=== PATIENT | female | born 1985 | race Caucasian/White ===

== ENCOUNTER 2021-11-22 14:23 | Emergency (ER) | payer MEDICAID ==
[~2021-11-22] VITALS: Ht 160 cm; Wt 87.5 kg
[~2021-11-22 14:23] MED LIST: ALBU-118 IH
[2021-11-22 14:33] VITALS: BP 136/82
--- NOTE | 2021-11-22 14:43 | NUR ---
Dr. Newton at bedside evaluating patient.
[2021-11-22] MEDS ORDERED: methylPREDNISolone SS 125 MG/2 ML VIAL IVP ONE (14:50)
[2021-11-22] MEDS ORDERED: ALBUTEROL SULFATE/IPRATROPIU 3 ML SOL IH ONE ×3 (14:50→16:55)
[2021-11-22] MEDS ORDERED: MAG SULF 2000 MG/WATER PREMIX 50 ML IV ONE (14:50)
--- NOTE | 2021-11-22 14:56 | NUR ---
XRAY AT BEDSIDE
--- NOTE | 2021-11-22 14:58 | NUR ---
Radiology at bedside.
--- NOTE | 2021-11-22 15:23 | NUR ---
35 y/o female bib self due to SOB from asthma x 2 days ago. Patient is at 100% a triage and at bedside. Patient also experiencing light headedness and chest/back pain. Medical History: ASTHMA ALLERGIES: DEXAMETHASONE
[2021-11-22 18:01] LABS: BASOPHILS % (AUTO) 0.4 % (0.0-2.0); EOSINOPHILS # (AUTO) 0.1 K/uL (0-0.4); EOSINOPHILS % (AUTO) 1.1 % (0.0-4.0); HEMATOCRIT 33.1 % (36-48); HEMOGLOBIN 10.4 g/dL (12.0-16.0); LYMPHOCYTES # (AUTO) 0.6 K/uL (2.5-16.5); LYMPHOCYTES % (AUTO) 8.2 % (20.5-51.1); MEAN CORPUSCULAR HEMOGLOBIN 22 pg (27-31); MEAN CORPUSCULAR HGB CONC 31 g/dL (33-37); MEAN CORPUSCULAR VOLUME 70.6 fL (80-94); MONOCYTES # (AUTO) 0.1 K/uL (0.8-1.0); MONOCYTES % (AUTO) 1.1 % (1.7-9.3); NEUTROPHILS # (AUTO) 6.1 K/uL (1.8-7.7); NEUTROPHILS % (AUTO) 89.2 % (42.2-75.2); PLATELET COUNT (AUTO) 334 K/uL (140-450); RED BLOOD CELL COUNT(AUTO) 4.69 MIL/uL (4.20-5.40); RED CELL DISTRIBUTION WIDTH 15.7 % (11.6-13.7); WHITE BLOOD COUNT (AUTO) 6.8 K/uL (4.8-10.8)
[2021-11-22 18:20] LABS: ALBUMIN 3.1 g/dL (3.4-5.0); ANION GAP 3.7 (8-16); CARBON DIOXIDE 27.1 mmol/L (21-32); CREATININE 0.9 mg/dL (0.6-1.3); POTASSIUM 3.8 mmol/L (3.5-5.1); TOTAL BILIRUBIN 0.1 mg/dL (0.0-1.0)
[2021-11-22] MEDS ORDERED: NACL 0.9% 1,000 ML IV ONE (18:30)
--- NOTE | 2021-11-22 19:11 | NUR ---
Report given to KEV Gomez for transfer of care.
--- NOTE | 2021-11-22 20:44 | NUR ---
PT SITTING AT BEDSIDE EATING .
--- NOTE | 2021-11-22 21:19 | NUR ---
REPORT CALLED TO [facility] ; [facility]AKESH GRE[facility] TELE UNIT. ETA 2 PLUS HRS
--- NOTE | 2021-11-22 22:28 | NUR ---
TRANSPORT ETA 15 MINS. PATIENT BELONGINGS IN BAG
--- NOTE | 2021-11-22 22:37 | NUR ---
[facility] transport at bedside
--- NOTE | 2021-11-22 22:46 | NUR ---
REPORT GIVENT TO [facility] AT BEDSIDE. PT DC FROM MONITOR ; IV SALINE LOCKED
[2021-11-22 22:50] VITALS: BP 118/76
--- NOTE | 2021-11-22 22:50 | NUR ---
Patient to be transferred to [facility]. Is being transferred due to HIGHER LEVEL OF CARE. Receiving facility has accepting physician and available space. ER physician has signed transfer form. Patient or responsible republican has agreed to transfer and signed form. Patient belongings inventoried and will be sent with patient. Copy of nursing notes, lab reports, EKG, Physicians Orders and X-rays to be sent with patient. Report called to RAKESH GREENBERG at receiving facility. [facility] ambulance service has been called for transfer. ETA is 1 HOUR.
== END 2021-11-22 22:50 | disposition short-term general hospital (02) ==
LOC: MED 14:23
DX: J45.901 Unspecified asthma with (acute) exacerbation (principal); E87.1 Hypo-osmolality and hyponatremia; I10 Essential (primary) hypertension; Z79.52 Long term (current) use of systemic steroids; Z20.822 Contact with and (suspected) exposure to COVID-19
CPT/HCPCS: 36415; 71045; 80053; 83880; 84484; 85025; 87426; 94640; 94760; 96361; 96365; 96366; 96375; 99291; J2930; J3475; J7030; Q0092